=== PATIENT | male | born 1975 | race Caucasian/White ===

== ENCOUNTER → 2021-03-04 09:17 | Outpatient (BNVA) | payer BC, SELFPAY | PROVIDERS: PCP Internal Medicine; Referring Provider Internal Medicine; Visit Provider Surgery | DX: L02.11 Cutaneous abscess of neck (principal) | CPT/HCPCS: 10061 ==

== ENCOUNTER → 2021-04-01 10:20 | Outpatient (BNVA) | payer BC, SELFPAY | PROVIDERS: PCP Internal Medicine; Referring Provider Internal Medicine; Visit Provider Surgery ==

== ENCOUNTER 2021-05-19 07:42 | Outpatient (REF) | payer BC, SELFPAY ==
[2021-05-19 07:53] VITALS: BMI 29.9
[2021-05-19 07:54] VITALS: BP 163/89; PULSE 77; RESP 16; TEMP 36.1; O2SAT 98
--- NOTE | 2021-05-19 08:24 | P.OP_ITS ---
Operative Note Operative Note Date of Service: 05/19/21 Narrative: Preoperative diagnosis: Infected inclusion cyst posterior right neck Postoperative diagnosis: Same Procedure: Excision of inclusion cyst posterior right neck Surgeon: Ganesh Monteiro MD Filament Coil Winder: None Anesthesia: Local Indications for procedure: 46-year-old male patient with a epidermal inclusion cyst of the posterior right neck. He has had 2 previous infections so should with this cyst now for excision. Operative findings: Epidermal inclusion cyst of the posterior right neck 2 cm diameter Specimen: Epidermal inclusion cyst posterior right neck Estimated blood loss: 2 mL Complications: None Procedure details: Patient was brought to the minor surgery suite placed in a left lateral decubitus position. The site of surgery as confirmed by the patient and informed consent confirmed. Skin was prepped with Betadine and draped in sterile fashion. Local anesthesia consisting of 1% lidocaine with epinephrine was infiltrated around the cyst. Elliptical incision was then made around the cyst and carried out through subcutaneous tissue and around the cyst wall. The cyst wall was completely excised and sent to pathology for further examination. Pressure was held to maintain hemostasis. Skin was then closed using interrupted 4-0 nylon sutures. Sterile dressings consisting of 2 x 2 gauze and Tegaderm were then applied. Patient tolerated the procedure well. Sponge, instrument, needle counts were correct. The patient was discharged to home in stable condition.
== END 2021-05-19 07:43 | disposition home or self-care (01) ==
LOC: HO.MS 07:42
PROVIDERS: PCP Internal Medicine; Visit Provider Surgery
PROC: (CPT 11422; principal; 2021-05-19 08:00)
DX: L72.0 Epidermal cyst (principal)
CPT/HCPCS: 11422; 88304

== ENCOUNTER → 2021-05-27 09:29 | Outpatient (BNVA) | payer BC, SELFPAY | PROVIDERS: PCP Internal Medicine; Referring Provider Internal Medicine; Visit Provider Surgery ==

== ENCOUNTER 2022-08-04 06:57 | Outpatient (REF) | payer BC, SELFPAY ==
[2022-08-04 07:19] LABS: MANUAL DIFF FLAG NO
[2022-08-04 07:37] LABS: Basophils Absolute Auto 0.1 X10*3/uL (0.0-0.2); Basophils Percent Auto 0.8 % (0-2); Eosinophils Absolute Auto 0.4 X10*3/uL (0.0-0.4); Eosinophils Percent Auto 5.5 % (0-4); Hematocrit 41.9 % (42.0-52.0); Hemoglobin 14.5 g/dl (14.0-18.0); Imm Gran Abs Auto 0.08 X10*3/uL (0.00-0.03); Imm Gran Pct Auto 1.1 % (0.0-0.4); Lymphocytes Absolute Auto 2.4 X10*3/uL (1.2-4.9); Lymphocytes Percent Auto 31.9 % (20-40); Mean Corpuscular HGB Conc 34.6 g/dl (31.0-36.0); Mean Corpuscular Volume 89.5 fL (80.0-98.0); Monocytes Absolute Auto 0.6 X10*3/uL (0.1-1.2); Monocytes Percent Auto 8.1 % (2-11); Neutrophils Percent Auto 52.6 % (45-73); Platelet Count 356 X10*3/uL (160-400); Red Blood Count 4.68 X10*6/uL (4.60-5.80); Red Cell Distribution Width 11.9 % (11.0-16.0); White Blood Count 7.5 X10*3/uL (4.8-10.8)
[2022-08-04 07:50] LABS: Estimated Average Glucose 100 mg/dL; Hemoglobin A1c % 5.1 %
[2022-08-04 08:08] LABS: Alanine Aminotransferase 29 U/L (0-40); Albumin Level 4.6 g/dL (3.5-5.0); Alkaline Phosphatase 85 U/L (39-117); Anion Gap 15 (12-20); Aspartate Amino Transferase 18 U/L (5-37); Bilirubin Total 0.6 mg/dL (0.0-1.0); Blood Urea Nitrogen 12 mg/dL (9-16); Calcium 9.7 mg/dL (8.4-10.2); Carbon Dioxide 26 mmol/L (22-29); Chloride 104 mmol/L (96-108); Cholesterol 232 mg/dL; Estimated Glomerular Filt Rate > 60; Glucose Fasting 111 mg/dL (60-99); HDL Cholesterol 41 mg/dL; LDL Cholesterol Calculated 155 mg/dl; Potassium 5.2 mmol/L (3.3-5.1); Sodium 140 mmol/L (135-145); Total Protein 7.6 g/dL (6.5-8.0); Triglycerides 182 mg/dL
[2022-08-04 08:29] LABS: Prostate Specific Antigen 1.37 ng/mL (<0.05-4.0)
== END 2022-08-04 06:58 | disposition home or self-care (01) ==
LOC: HO.LAB 06:57
PROVIDERS: PCP Internal Medicine; Visit Provider Internal Medicine
DX: Z00.00 Encounter for general adult medical examination without abnormal findings (principal); Z12.5 Encounter for screening for malignant neoplasm of prostate; R73.03 Prediabetes; R97.20 Elevated prostate specific antigen [PSA]; R35.1 Nocturia
CPT/HCPCS: 36415; 80053; 80061; 83036; 84153; 85025

== ENCOUNTER 2022-10-20 13:57 | Outpatient (REF) | payer BC, SELFPAY ==
--- NOTE | ~2022-10-20 | XR_ITS ---
EXAMINATION: CHEST AND SINUSES CLINICAL INFORMATION: Cough COMPARISON: None TECHNIQUE: Chest 2 views. Sinuses 4 views. FINDINGS: Chest: The lungs are well-expanded and clear. The heart size and pulmonary vascularity is normal. No gross bony abnormality seen. Sinus 3 views. There is mild mucoperiosteal thickening bilateral maxillary sinuses. Rest of the paranasal sinuses and the mastoid air cells appear clear. Visualized facial bones and the nasal bones are unremarkable. The bony orbits are unremarkable. XR/XR sinus min 3V IMPRESSION: 1. Unremarkable chest exam. 2. Mild mucoperiosteal thickening bilateral maxillary sinuses. No air-fluid levels seen.
--- NOTE | ~2022-10-20 | XR_ITS ---
EXAMINATION: CHEST AND SINUSES CLINICAL INFORMATION: Cough COMPARISON: None TECHNIQUE: Chest 2 views. Sinuses 4 views. FINDINGS: Chest: The lungs are well-expanded and clear. The heart size and pulmonary vascularity is normal. No gross bony abnormality seen. Sinus 3 views. There is mild mucoperiosteal thickening bilateral maxillary sinuses. Rest of the paranasal sinuses and the mastoid air cells appear clear. Visualized facial bones and the nasal bones are unremarkable. The bony orbits are unremarkable. XR/XR chest 2V IMPRESSION: 1. Unremarkable chest exam. 2. Mild mucoperiosteal thickening bilateral maxillary sinuses. No air-fluid levels seen.
[2022-10-20 15:02] LABS: Influenza A PCR NEGATIVE (Negative); Influenza B PCR NEGATIVE (Negative); Resp Syncy Virus RNA Qual PCR NEGATIVE (Negative); SARS COV2 PCR INHOUSE NEGATIVE (Negative)
== END 2022-10-20 13:58 | disposition home or self-care (01) ==
LOC: HO.XRAY 13:57
PROVIDERS: PCP Internal Medicine; Visit Provider Internal Medicine
DX: R05.9 Cough, unspecified (principal); R09.81 Nasal congestion; Z20.822 Contact with and (suspected) exposure to COVID-19
CPT/HCPCS: 0241U; 70220; 71046

== ENCOUNTER 2023-01-05 10:18 | Day surgery (SDC) | payer BC, SELFPAY ==
[2023-01-05 10:26] VITALS: BMI 28.3
[2023-01-05] MEDS: Lactated Ringers 1,000 ML 50 ML IVCONT (10:39)
[2023-01-05 10:46] VITALS: BP 138/94; PULSE 89; RESP 18; TEMP 36.6; O2SAT 98
--- NOTE | 2023-01-05 10:49 | P.CONAN_ITS ---
[facility] Active Problems Active Problems: All Active Problems (Updated 01/04/23 @ 12:39 by Sparkle Keyes RN) Abscess of skin of neck (Acute) Past Medical History Medical History Depression Elevated cholesterol Surgical History Surgical History (Updated 01/05/23 @ 10:52 by Alondra Barnes RN) No pertinent past surgical history Social History Social History Alcohol intake: current Alcohol intake frequency: holidays/special occasions only Patient Tobacco Use Status: Never used Tobacco Are you DNR?: No Advance Directives: No Advance Directives Information Provided: Yes Nutrition Risks: No Nutritional Risk Meds Allergies Allergy/AdvReac Type Severity Reaction Status Date / Time No Known Allergies Allergy Verified 01/05/23 10:52 [No Known Allergies*] Active Medications: Current Medications Lactated Ringer's (Lr) 1,000 mls @ 50 mls/hr IVCONT .Q20H CELIO Last Admin: 01/05/23 10:39 Dose: 50 mls/hr Home Medications Medication Instructions Recorded Confirmed Last Taken Type fluoxetine 10 mg capsule 10 mg PO DAILY 03/04/21 04/01/21 Unknown History multivitamin 1 tab PO DAILY 03/04/21 04/01/21 Unknown History ashwagandha extract 01/04/23 Unknown History testosterone 4 mg/24 hr 1 patch transdermal DAILY 01/04/23 01/04/23 Unknown History transdermal 24 hour patch Exam Exam Date and Time: January 05, 2023 1049 Height,Weight and Vital Signs: Height 6 ft 1 in Weight 97.522 kg Last Vital Signs Temp 97.9 F 01/05/23 10:46 Pulse 89 01/05/23 10:46 Resp 18 01/05/23 10:46 BP 138/94 H 01/05/23 10:46 Pulse Ox 98 01/05/23 10:46 O2 Del Method Room Air 01/05/23 10:46 Airway Mallampati Class: II TM Dist: >3cm Neck ROM: Full Heart: RRR Lungs: CTA Assessment and Plan Final Anesthetic Review ASA Class: II Final Preanesthetic Review: Meds/Allgs Chart Reviewed, Consent Obtained/Reviewed and Anes Risks/Benef Reviewed Patient Risk: Low Procedure Risk: Low Anesthetic Plan Anesthetic Plan: MAC: Disposition: Standard PACU
--- NOTE | 2023-01-05 11:59 | MHC.SHP ---
Pre-Procedural Eval Section A Date of Service: 01/05/23 The patient is an INPATIENT: No Changes since office visit: No Cold of Flu in the past 2 weeks, No New Medical Problems, No Changes in Medication and No Patient answered all questions The History & Physical has been completed within 30 days and I have reviewed it.: Yes Section B Chief Complaint: Screening Allergies: Allergies Allergy/AdvReac Type Severity Reaction Status Date / Time No Known Allergies Allergy Verified 01/05/23 10:52 [No Known Allergies*] Plan I have reviewed the history and physical and performed a pertinent physical examination on my patient. No changes have occurred unless specified. Time Spent With Patient Time: Total time managing care of this patient today ____ minutes.
[2023-01-05 12:37] VITALS: BP 84/55; PULSE 82; RESP 16; TEMP 36.4; O2SAT 94
--- NOTE | 2023-01-05 12:38 | PM.OP ---
Brief Operative Note Date of Service: 01/05/23 Pre-op diagnosis: screening Post-op diagnosis: same Procedure: colonsocopy Surgeon: Derick Padilla Anesthesia: MAC Was an Computerized Table Cutter used for this Procedure?: No Estimated blood loss (mL): 2 Pathology: other Condition: stable Disposition: PACU
[2023-01-05 12:52] VITALS: BP 118/85; PULSE 82; RESP 16; TEMP 36.2; O2SAT 96
--- NOTE | 2023-01-05 13:08 | HO.POSTANES ---
Post Anesthesia Evaluation Post Anesthesia Evaluation Vital Signs: Vital Signs Temp Pulse Resp BP Pulse Ox O2 Del Method 01/05/23 12:52 97.1 F 82 16 118/85 96 Room Air 01/05/23 12:37 97.5 F 82 16 84/55 L 94 Room Air 01/05/23 10:46 97.9 F 89 18 138/94 H 98 Room Air Anesthesia: Monitored Mental Status: Awake Pain Control: Satisfactory Nausea/Vomiting: None Hydration: Adequate Anesthesia-Related Issues: No Anes. Related Issues
--- NOTE | 2023-01-05 13:27 | OP_ITS ---
DATE OF SERVICE: 01/05/2023 SURGEON: Derick Padilla MD INDICATIONS: Colon cancer screening. PREOPERATIVE DIAGNOSIS: POSTOPERATIVE DIAGNOSIS: PROCEDURE PERFORMED: Colonoscopy to the terminal ileum with snare polypectomy. ESTIMATED BLOOD LOSS: COMPLICATIONS: ANESTHESIA: Monitored anesthesia care. ASSISTANTS: SPECIMENS: DESCRIPTION OF PROCEDURE: A history and physical was performed. The risks and benefits of the procedure were explained to the patient. Informed consent was obtained. The patient was placed in the left lateral decubitus position. A digital rectal exam was performed and was found to be normal. The Olympus pediatric video colonoscope was introduced into the rectum and advanced to the cecum without difficulty. The cecum was identified by transillumination, palpation, and identification of ileocecal valve. Examination was performance. The scope was removed. He tolerated the procedure well and was returned to the recovery area in stable condition. FINDINGS: The terminal was examined and appeared normal. The visualized colonic mucosa was within normal limits. No evidence of masses or ulcers. The quality of prep was good. At the 30 cm from the anal verge was a 10 mm polyp, which was removed with a snare and recovered by suction. No other polyps were identified. The base of the polyp was cauterized. Retroflexed examination shows some small internal hemorrhoids. IMPRESSION: Colon polyp. RECOMMENDATIONS: Follow up the biopsy results. MD LAINEY Mcdaniel/ANGELICAL / [phone]
== END 2023-01-05 13:30 | disposition home or self-care (01) ==
PROVIDERS: PCP Internal Medicine; Visit Provider Internal Medicine Gastroenterology
PROC: 0DJD8ZZ Inspection of Lower Intestinal Tract, Via Natural or Artificial Opening Endoscopic (ICD-10-PCS; CPT 45378; principal; 2023-01-05 11:30)
DX: Z12.11 Encounter for screening for malignant neoplasm of colon (principal); D12.5 Benign neoplasm of sigmoid colon; K64.8 Other hemorrhoids; E78.00 Pure hypercholesterolemia, unspecified; F32.A Depression, unspecified; Z79.899 Other long term (current) drug therapy
CPT/HCPCS: 45385; 88305

== ENCOUNTER 2023-12-13 06:57 | Outpatient (REF) | payer BC, SELFPAY ==
[2023-12-13 07:14] LABS: MANUAL DIFF FLAG NO
[2023-12-13 07:24] LABS: Basophils Absolute Auto 0.1 X10*3/uL (0.0-0.2); Basophils Percent Auto 0.7 % (0-2); Eosinophils Absolute Auto 0.5 X10*3/uL (0.0-0.4); Eosinophils Percent Auto 6.5 % (0-4); Hematocrit 44.9 % (42.0-52.0); Hemoglobin 15.8 g/dl (14.0-18.0); Imm Gran Abs Auto 0.04 X10*3/uL (0.00-0.03); Imm Gran Pct Auto 0.5 % (0.0-0.4); Lymphocytes Absolute Auto 2.2 X10*3/uL (1.2-4.9); Lymphocytes Percent Auto 27.9 % (20-40); Mean Corpuscular HGB Conc 35.2 g/dl (31.0-36.0); Mean Corpuscular Hemoglobin 31.3 pg (27.0-33.0); Mean Corpuscular Volume 88.9 fL (80.0-98.0); Mean Platelet Volume 9.2 fL (9.4-12.4); Monocytes Absolute Auto 0.6 X10*3/uL (0.1-1.2); Monocytes Percent Auto 7.8 % (2-11); Neutrophils Absolute Auto 4.6 x10*3/uL (2.0-8.3); Neutrophils Percent Auto 56.6 % (45-73); Platelet Count 301 X10*3/uL (160-400); Red Blood Count 5.05 X10*6/uL (4.60-5.80); Red Cell Distribution Width 12.5 % (11.0-16.0)
[2023-12-13 07:42] LABS: Alanine Aminotransferase 35 U/L (0-40); Albumin Level 4.4 g/dL (3.5-5.0); Alkaline Phosphatase 92 U/L (39-117); Anion Gap 13 (12-20); Aspartate Amino Transferase 23 U/L (5-37); Bilirubin Total 0.5 mg/dL (0.0-1.0); Blood Urea Nitrogen 14 mg/dL (9-16); Calcium 9.7 mg/dL (8.4-10.2); Carbon Dioxide 26 mmol/L (22-29); Chloride 106 mmol/L (96-108); Cholesterol 216 mg/dL (<200); Estimated Glomerular Filt Rate > 60; Glucose Fasting 111 mg/dL (60-99); HDL Cholesterol 36 mg/dL (>40); LDL Cholesterol Calculated 138 mg/dL (<100); Potassium 4.7 mmol/L (3.3-5.1); Sodium 140 mmol/L (135-145); Total Protein 7.9 g/dL (6.5-8.0); Triglycerides 212 mg/dL (<150)
[2023-12-13 07:59] LABS: Thyroid Stimulating Hormone 1.05 uIU/mL (0.32-4.0)
[2023-12-13 08:01] LABS: Vitamin B12 614 pg/mL (200-900)
== END 2023-12-13 06:58 | disposition home or self-care (01) ==
LOC: HO.LAB 06:57
PROVIDERS: PCP Internal Medicine; Visit Provider Internal Medicine
DX: R53.83 Other fatigue (principal); E78.00 Pure hypercholesterolemia, unspecified; Z82.49 Family history of ischemic heart disease and other diseases of the circulatory system
CPT/HCPCS: 36415; 80053; 80061; 82607; 84443; 85025

== ENCOUNTER 2024-09-22 15:48 | Outpatient (AMB) | payer BC, SELFPAY ==
--- NOTE | 2024-09-22 16:08 | MHC.OFFWIV ---
Intake Vital Signs 09/22/24 16:14 Weight 220 lb BP 140/100 H Blood Pressure Location Rt brachial Position Sitting Pulse 78 Pulse Source Pulse Oximeter Temp 97.8 F Temp Source Oral Pulse Oximetry (%) 97 Oxygen Delivery Method Room Air Intake Visit Reasons: EP nauseous, dizzy, throbbing on his gums Patient Tobacco Use Status: Never used Tobacco Allergies No Known Allergies [No Known Allergies*] Allergy (Verified 09/22/24 16:15) Do you need a note to return to daycare/school/sports/work: No HPI HPI Comments History of Present Illness Details History The patient is a 49-year-old male presenting with dizziness and nausea. These symptoms began on Sunday evening, approximately 2 days ago, when the patient experienced dizziness and lightheadedness at around 4 PM. The symptoms improved transiently after eating. However, he awoke in the middle of the night with profuse sweating, which resolved after he returned to bed. yesterday, he noticed mild dizziness intermittently but felt generally well throughout the day until attending his son's game today. Afterward, he nearly did not make it home due to intensified dizziness, nearly fainting, fingertip tingling, and nausea. He reports no significant cough beyond his usual allergy-related symptoms, no fever, no ear pain, nor significant headaches. There is no shortness of breath or wheezing. Prior similar episodes led to a prior medical assessment suggestive of a viral cause, with a brief history of feeling like he was experiencing a heart attack. He was previously evaluated in a hospital setting, where cardiovascular causes were ruled out, and viral etiology was suggested.He denies any cardiovascular problems. Current management includes Mucinex for congestion initiated the prior night without noticeable improvement. He denies current chest pain or any significant changes in congestion patterns. There is a background of normal respiratory congestion without exacerbation. He is on regular allergy medication, with no other significant cardiovascular, respiratory, or infectious symptoms reported. Physical Exam General: Cooperative, healthy appearing, comfortable and no acute distress Orientation/consciousness: Patient oriented x3 Limitations: No limitations Head: Normal to inspection Ears: Hearing grossly normal bilaterally, external ears normal and TM's normal bilaterally Nose: Normal external nose present, Normal nares present and No nasal discharge present Face and sinus: Normal facial exam and Yes sinuses nontender Mouth: Normal oral and palatal mucosa present and moist mucous membranes Throat: Yes tonsils normal, Yes uvula midline. Posterior oropharynx erythema Eyes: Appearance normal, both eyes and all related structures Neck: Normal visual inspection Respiratory: Clear to auscultation bilaterally. Normal respiratory effort, able to speak in complete sentences, no respiratory distress, not tachypneic, no tripod positioning and no use of accessory muscles Cardiovascular: Regular rate and rhythm. Normal S1 and S2 Skin: No rashes or lesions noted Neuro: Patient oriented x3 Extremities: Normal to inspection and Yes no clubbing, cyanosis or edema PFSH Medical History (Updated 09/22/24 @ 16:31 by Marjorie Pelayo PA-C) Elevated cholesterol Depression Surgical History (Updated 01/05/23 @ 10:52 by Alondra Barnes RN) No pertinent past surgical history Social History Alcohol intake: current Alcohol intake frequency: holidays/special occasions only Patient Tobacco Use Status: Never used Tobacco Review of Systems Const All systems reviewed & are unremarkable except as noted in HPI and below Physical Exam Vital Signs: Last Vital Signs Temp 97.8 F 09/22/24 16:14 Pulse 78 09/22/24 16:14 BP 140/100 H 09/22/24 16:14 Pulse Ox 97 09/22/24 16:14 Oxygen Delivery Method Room Air 09/22/24 16:14 Assessment & Plan Assessment & Plan (1) URI, acute: Code(s): J06.9 - Acute upper respiratory infection, unspecified Plan: Plan - Differential Diagnosis: Suspected viral illness causing dizziness; rule out Influenza, COVID-19, and RSV with diagnostic testing. - Medication: Prescribe prednisone 40 mg daily to reduce congestion affecting dizziness. Continue current Mucinex regimen for congestion. Consider an allergy pill with antihistaminic properties for its drying effects. Can use Benadryl as needed for anticholinergic effects - Nausea Management: Prescribe Ondansetron as needed for nausea, ensuring usage not to exceed every eight hours. - Monitoring and Follow-up: Advise monitoring of symptoms with instructions for emergency evaluation if symptoms worsen significantly, including inability to stand or potential need for further imaging like a CT scan. - Vital Status: Reassured by stable vital signs; plan for rest, hydration, and self-care at home assuming symptom stability while awaiting test results. Notify patient of test results for Flu, COVID, and RSV once available. Patient was informed and verbally consented to the use of an ambient scribe for clinic note documentation during this visit Orders: Orders SARS-CoV2/FLU/RSV Today J06.9 - Acute upper respiratory infection, unspecified Medications: New ondansetron 4 mg PO Q8H PRN 10 tabs 0RF nausea and vomiting prednisone 40 mg (2 x 20 mg) PO DAILY 10 tabs 0RF Coding Level of Care Code New Pt Level 4 (33624) Diagnoses URI, acute J06.9
[2024-09-22 16:14] VITALS: BP 140/100; PULSE 78; TEMP 36.6; O2SAT 97
== END 2024-09-22 16:34 | disposition home or self-care (01) ==
PROVIDERS: PCP Internal Medicine; Visit Provider Physician Assistant
DX: J06.9 Acute upper respiratory infection, unspecified (principal)

== ENCOUNTER 2024-09-22 15:48 | Outpatient (REF) | payer BC, SELFPAY ==
--- OUTSIDE RECORDS SUMMARY | 2024-09-22 16:33 | XMS_ITS | Patient Health Record ---
Author Organization [facility] Address [address] [place] [address] Care Team Providers Care Materials Engineering Technician Name Role Phone Bob Leal MD Primary Care Provider Derick Martinez Jr Unavailable ALLERGIES Allergen (clinical drug ingredient) Drug/Non Drug Allergy documented on EMR Reaction Allergy Type Onset Date Status Pollen Pollen Unknown Allergy Active REASON FOR REFERRAL No Information MEDICATIONS Medication SIG (Take, Route, Frequency, Duration) Notes Start Date End Date Status FLUoxetine HCl 10 MG 1 capsule Orally On ce a day for 30 day(s) Active Testosterone 4 MG/24HR 1 patch to skin a t bedtime Transdermal Once a day Active MiraLax (colon prep) 17 GM/SCOOP mixed with Gatorade or Crystal Light Orally begin at 5:00 p.m. the day before the procedure for 1 day 12/04/2022 Active Multivitamin - 1 tablet Orally Once a day for 30 day(s) Active Ashwagandha 500 MG as directed Orally Active IMMUNIZATIONS Vaccine Route Administration Date Status Comme nts Influenza Unknown 07/19/2022 Administered SOCIAL HISTORY Tobacco Use: Social History Observation Description Date Details (start date - stop date) Never Smoker NA - NA Sex Assigned At : Social History Observation Description Sex Assigned At Unknown Tobacco Use/Smoking Question Answer Notes Patient is a nonsmoker Alcohol Screen Question Answer Notes Did you have a drink contain ing alcohol in the past year? Yes How often did you have a dri nk containing alcohol in the past year? 2 to 3 times a week (3 points) How many drinks did you have on a typical day when you were drinking in the past year? 5 or 6 drinks (2 points) How often did you have 6 or more drinks on one occasion in the past year? Weekly (3 points) Points 8 Interpretation Positive PROBLEMS Problem Type ICD Code Onset Dates Problem Status W/U Status Risk SNOMED Code Notes Problem Colon cancer screening (Z12.11) Active confirmed 777161323 Problem Encounter for other preprocedural examination (Z01.818) Active confirmed 076612476 PLAN OF TREATMENT Future Test Test Name Order Date COLONOSCOPY 12/04/2022 Insurance Providers Payer Name Payer Address Payer Phone Subscriber Number Group Number Insured Name Patient Relationship to Insured Coverage Start Date Coverage End Date [facility] [address] [place] [address] [id number] DALY Self - patient is the insured MEDICAL (GENERAL) HISTORY Medical History History ICD Code Depression Elevated cholesterol Surgical History Surgery Date(Month/Year)
[2024-09-23 10:56] LABS: Influenza A PCR NEGATIVE (Negative); Influenza B PCR NEGATIVE (Negative); Resp Syncy Virus RNA Qual PCR NEGATIVE (Negative); SARS COV2 PCR INHOUSE NEGATIVE (Negative)
== END 2024-09-22 15:49 | disposition home or self-care (01) ==
LOC: HO.LAB 15:48
PROVIDERS: PCP Internal Medicine; Visit Provider Physician Assistant
DX: J06.9 Acute upper respiratory infection, unspecified (principal)
CPT/HCPCS: 0241U